=== PATIENT | male | born 1970 | race Caucasian/White ===

== ENCOUNTER 2017-08-17 20:51 | Observation (INO) | payer BC, OTHER ==
[~2017-08-17] VITALS: Ht 172.7 cm; Wt 102.5 kg
[2017-08-17] MEDS ORDERED: ASPIRIN 81 MG CHEW TAB PO ONE (21:15)
[2017-08-17] MEDS ORDERED: NITROGLYCERIN 2% OINT 1 GM PKT TOP ONE (21:15)
[2017-08-17 21:29] LABS: BASOPHILS # (AUTO) 0.1 (0.0-0.1); BASOPHILS % 0.7 % (0.0-1.0); EOSINOPHILS # (AUTO) 0.2 (0.0-0.4); HEMATOCRIT 46.6 % (38.2-49.6); HEMOGLOBIN 15.5 g/dL (14.0-18.0); LYMPHOCYTES # (AUTO) 2.5 (1.0-3.2); LYMPHOCYTES % 28.6 % (18.0-39.1); MEAN CORPUSCULAR HGB CONC 33.3 g/dL (31-35); MEAN CORPUSCULAR VOLUME 90.1 fL (81-99); MONOCYTES # (AUTO) 0.8 (0.2-0.8); MONOCYTES % 8.6 % (4.4-11.3); NEUTROPHILS # (AUTO) 5.3 (2.1-6.9); NEUTROPHILS % 59.9 % (38.7-80.0); PLATELET COUNT 162 x10e3/uL (140-360); RED BLOOD COUNT 5.17 x10e6/uL (4.3-5.7); RED CELL DISTRIBUTION WIDTH 13.5 % (11.7-14.4)
[2017-08-17 21:39] LABS: INR 0.91; PARTIAL THROMBOPLASTIN TIME 32.6 seconds (23.8-35.5); PROTHROMBIN TIME 12.7 seconds (11.9-14.5)
[2017-08-17 21:49] LABS: ALANINE AMINOTRANSFERASE 33 IU/L (0-55); ALBUMIN 3.8 g/dL (3.5-5.0); ALKALINE PHOSPHATASE 96 IU/L (40-150); ANION GAP 10.9 mmol/L (8-16); BLOOD UREA NITROGEN 17 mg/dL (7-26); BUN/CREATININE RATIO 16 (6-25); CALCIUM 9.2 mg/dL (8.4-10.2); CARBON DIOXIDE 27 mmol/L (22-29); CHLORIDE 107 mmol/L (98-107); CREATINE KINASE 95 IU/L (30-200); CREATININE, SERUM 1.06 mg/dL (0.72-1.25); EST GLOMERULAR FILTRATION RATE > 60 ML/MIN (60-); GLUCOSE 109 mg/dL (74-118); POTASSIUM 3.9 mmol/L (3.5-5.1); SODIUM 141 mmol/L (136-145)
[2017-08-17 21:55] LABS: TROPONIN I 0.005 ng/mL (0-0.300)
--- NOTE | 2017-08-17 21:56 | Diagnostic Imaging Report ---
CHEST SINGLE (NOT PORTABLE), 08/17/2017 9:08 PM Technique: CHEST SINGLE (NOT PORTABLE) Comparison: None available. Clinical history: Chest pain Findings: Unremarkable appearance of the heart, mediastinum, lungs and pleural spaces. Remote right rib fractures. Impression: 1. Lines/Tubes: None 2. No acute abnormality. Signed by: Dr Doris Tavarez MD on 08/17/2017 9:52 PM
[2017-08-17] MEDS ORDERED: MORPHINE SULFATE 2 MG/ML SYR IV PRN (22:30)
[2017-08-17] MEDS ORDERED: SODIUM CHLORIDE FLUSH 10 ML SYR INJ PRN (22:30)
[2017-08-17] MEDS ORDERED: ONDANSETRON HCL INJ 2 MG/ML VIAL IV PRN (22:30)
[2017-08-17] MEDS: FAMOTIDINE 20 MG/2 ML VIAL IV SCH (22:51)
[2017-08-18] VITALS (7 sets, daily range): BP systolic 100–156; BP diastolic 60–84
[2017-08-18] MEDS: NITROGLYCERIN 2% OINT 1 GM PKT TOP SCH ×4 (05:10→18:00)
[2017-08-18 07:05] LABS: BASOPHILS # (AUTO) 0.1 (0.0-0.1); BASOPHILS % 0.8 % (0.0-1.0); EOSINOPHILS # (AUTO) 0.2 (0.0-0.4); EOSINOPHILS % 2.3 % (0.0-6.0); HEMATOCRIT 43.5 % (38.2-49.6); HEMOGLOBIN 14.4 g/dL (14.0-18.0); LYMPHOCYTES # (AUTO) 2.3 (1.0-3.2); LYMPHOCYTES % 30.4 % (18.0-39.1); MEAN CORPUSCULAR HEMOGLOBIN 29.9 pg (28-32); MEAN CORPUSCULAR HGB CONC 33.1 g/dL (31-35); MEAN CORPUSCULAR VOLUME 90.4 fL (81-99); MONOCYTES # (AUTO) 0.7 (0.2-0.8); MONOCYTES % 9.2 % (4.4-11.3); NEUTROPHILS # (AUTO) 4.3 (2.1-6.9); NEUTROPHILS % 56.8 % (38.7-80.0); PLATELET COUNT 156 x10e3/uL (140-360); RED BLOOD COUNT 4.81 x10e6/uL (4.3-5.7); RED CELL DISTRIBUTION WIDTH 13.4 % (11.7-14.4)
[2017-08-18 07:27] LABS: ALANINE AMINOTRANSFERASE 31 IU/L (0-55); ALBUMIN 3.3 g/dL (3.5-5.0); ALKALINE PHOSPHATASE 68 IU/L (40-150); ANION GAP 11.2 mmol/L (8-16); BLOOD UREA NITROGEN 15 mg/dL (7-26); BUN/CREATININE RATIO 16 (6-25); CALCIUM 8.8 mg/dL (8.4-10.2); CARBON DIOXIDE 28 mmol/L (22-29); CHLORIDE 108 mmol/L (98-107); CHOL/HDL RATIO 3.5 (3.9-4.7); CHOLESTEROL 164 MD/DL (0-199); CREATINE KINASE 64 IU/L (30-200); CREATININE, SERUM 0.94 mg/dL (0.72-1.25); EST GLOMERULAR FILTRATION RATE > 60 ML/MIN (60-); GLUCOSE 96 mg/dL (74-118); HDL CHOLESTEROL 47 MG/DL (40-60); LDL CHOLESTEROL 105 MG/DL (60-130); POTASSIUM 4.2 mmol/L (3.5-5.1); SODIUM 143 mmol/L (136-145); TRIGLYCERIDES 59 MG/DL (0-149)
[2017-08-18] MEDS: ASPIRIN 81 MG ENTERIC COATED PO SCH (08:16)
[2017-08-18 08:41] LABS: TROPONIN I 0.006 ng/mL (0-0.300)
[2017-08-18] MEDS ORDERED: REGADENOSON 0.4 MG/5 ML SYR IV ONE (09:04)
--- NOTE | 2017-08-18 09:24 | Consultation ---
DATE OF CONSULTATION: August 17, 2017 CARDIOLOGY CONSULTATION REASON FOR CONSULTATION: Chest pain. CONSULTING PHYSICIAN: Dr. Finn HPI: This is a pleasant 47-year-old male that presented with chest pain. According to him, yesterday he started having central chest pain that felt like a tightness and pressure on a scale of 5 out of 10 that radiated to his neck and left shoulder that he decided to come into the emergency room for evaluation. He also stated having a history of cardiac catheterization times 2, one at [facility] and 1 at [place]. Multiple nuclear stress tests. He does not follow up with any primary doctor. He is only taking aspirin daily. He also has a strong family history of cardiac problems. He denies any palpitation, any dizziness, any shortness of breath, any diaphoresis, or headache. Troponin times 1 is negative. EKG showed normal sinus rhythm with some inverted T-waves. Chest x-ray showed some remote rib fractures. PAST MEDICAL HISTORY: AR times 2 with no intervention and possible high blood pressure, but not on any medications. SURGICAL HISTORY: Right knee surgery times 2, bilateral hernia repair, cyst removal from the neck due to cancer. FAMILY HISTORY: Positive for CAD. The father has an ICD and a pacemaker. SOCIAL HISTORY: No smoking. He drinks occasionally and lives at home by himself. The recently . MEDICATIONS: He is not on any home medications that was prescribed. He takes [id number] 325 mg aspirin. ALLERGIES: HE IS NOT ALLERGIC TO ANY MEDICATIONS. REVIEW OF SYSTEMS: Negative except as mentioned above. It is positive for chest pain. PHYSICAL EXAMINATION VITAL SIGNS: Temperature 97, heart rate 55, blood pressure 123/69, respirations 20, and oxygen saturation 99%. GENERAL: He is alert, awake, well-built, and oriented times 3. HEENT: Mucous membrane moist. NECK: Supple. LUNGS: Bilateral clear to auscultation. CARDIOVASCULAR: S1 and S2 present. ABDOMEN: Soft. NEUROLOGICAL: Intact. EXTREMITIES: With no edema. LABS: Sodium 143, potassium 4.2, chloride 108, CO2 28, BUN 15, creatinine 0.94, glucose 96. White blood cells 7.54, hemoglobin 14.4, hematocrit 43.5, and platelets 156,000. PT 12.7, PTT 32.6, INR 0.92. IMPRESSION 1. Chest pain - Unstable angina 2. History of myocardial infarction with cardiac catheterization times 2 with no intervention. ASSESSMENT AND PLAN: Will get an echo to assess the LV and the valve function. Will continue nitrate and aspirin. Due to his cardiac history of AR times 2, will go ahead and schedule him for a Lexiscan Myoview to rule out any occlusion. Will get serial cardiac enzymes. Check magnesium. Further cardiac workup pending clinical course. Thank you for this consultation. DICTATED BY GALLO AVALOS NP Job#: [id number] [facility] [place]
[2017-08-18] MEDS: FAMOTIDINE 20 MG/2 ML VIAL IV SCH ×2 (10:41→22:23)
[2017-08-18 16:00] LABS: CREATINE KINASE MB 0.8 ng/mL (0.00-5.00); TROPONIN I 0.011 ng/mL (0-0.300)
--- NOTE | 2017-08-18 18:16 | History and Physical ---
PRIMARY CARE PROVIDER: Dr. Mo Giordano. CHIEF COMPLAINT: Chest pain. HISTORY OF PRESENT ILLNESS: Mr. Kelley is a 47-year-old gentleman who comes in with intermittent chest pain over the last 6 days associated with diaphoresis, shortness of breath, clammy feeling radiating down both arms that went away with rest, occurred with some activity. It happened approximately 4 times in the last 6 days. The patient has had a heart cath twice in the past. He had one done in 2010 here where they said he had some kind of a blockage, but when they squirted the dye the blockage went away, so he has had no intervention. He may of had a transient thrombus in one of his coronaries in 2010. He also had another heart cath 2 years ago at [place] and again no intervention. REVIEW OF SYSTEMS: He denies fever, chills or weight loss. Denies sinus congestion or sore throat. He complains of chest pain that is exertional with diaphoresis and shortness of breath. He denies cough or wheezing. Denies abdominal pain, nausea or vomiting. He denies dysuria or flank pain. Denies rash or pruritus. Denies bleeding or bruising. Denies headache, vertigo or loss of consciousness. He denies depression, agitation, homicidal or suicidal ideation. PAST MEDICAL HISTORY: Negative. MEDICATIONS: The patient is on no medications. PAST SURGICAL HISTORY: He has had a heart cath x2 in the past for chest pain with no intervention. He does have a history of knee surgery. SOCIAL HISTORY: He is not a smoker. The patient is a . His 2 years ago from lung cancer. He does not drink or use illegal drugs. He is generally independently functioning. ALLERGIES: NO KNOWN DRUG ALLERGIES. FAMILY HISTORY: Significant for heart disease in his father that started at age 50. He has a brother that is healthy. PHYSICAL EXAM: PSYCHIATRIC: He is alert and oriented times 3 with normal mood and affect. CONSTITUTIONAL: He has a normal body habitus. Is in no acute distress. VITAL SIGNS: Blood pressure 100/60. Pulse 55 and regular. Respiratory rate 18. O2 sat 97%. Temperature 97.2. HEENT: Head is atraumatic. His eyes are anicteric with clear conjunctivae. Ears and nares are without erythema or discharge. Oropharynx is clear. NECK: Is supple. No mass or thyromegaly. LYMPHATIC SYSTEM: No palpable cervical, axillary or inguinal adenopathy. CARDIOVASCULAR: His heart has a regular rate and rhythm without murmur or extra heart sounds. No carotid bruits. Has no peripheral edema. Has palpable dorsal pedal pulses. RESPIRATORY: Clear to auscultation and percussion with normal respiratory effort. GASTROINTESTINAL: Abdomen is soft without organomegaly, masses or tenderness. Normal bowel sounds present. CUTANEOUS: His skin is warm and dry to touch with no rash or skin breakdown. MUSCULOSKELETAL: Joints are in normal alignment without erythema or swelling. He has no calf tenderness. NEUROLOGIC: Exam is nonfocal with intact cranial nerves and no motor or sensory deficits. DIAGNOSTIC STUDIES: Chest x-ray shows no acute disease. EKG is essentially normal. Cholesterol 164. HDL 47. LDL 105. Troponin 0.005, 0.006 and 0.011. BNP is 24.0. Magnesium 2.2. His electrolytes are normal. CO2 is 28. Creatinine 0.94. BUN 15 for a normal GFR. Glucose is 96. Calcium is 8.8. Transaminases, bilirubin and alkaline phos are all normal. CBC shows a white count of 7.54 with a normal differential. Hemoglobin 14.4, hematocrit 43.5 and platelet count 156,000. IMPRESSION AND PLAN 1. Chest pain. Serial cardiac enzymes have ruled out myocardial injury. The symptoms were consistent with unstable angina. Cardiology has been consulted and is planning on doing a stress test or heart cath tomorrow. The patient has been given aspirin and is an 81 mg daily and morphine as needed for pain. 2. For prophylaxis. He is on Pepcid. Job#: [id number]
[2017-08-19] VITALS (9 sets, daily range): BP systolic 115–128; BP diastolic 61–77
[2017-08-19] MEDS: NITROGLYCERIN 2% OINT 1 GM PKT TOP SCH ×2 (00:36→06:00)
[2017-08-19] MEDS ORDERED: HEPARIN SOD (PORCINE) 1000 UNIT/ML 30ML ONE (06:33)
[2017-08-19] MEDS ORDERED: LIDOCAINE HCL 2% LOCAL 20 ML VIAL ONE (06:34)
[2017-08-19] MEDS ORDERED: HEPARIN SOD/SOD CHLORIDE 2,000 ML ONE (06:34)
[2017-08-19] MEDS ORDERED: IOPAMIDOL 300MG/ML 50ML INFUS..BTL IV ONE (06:34)
[2017-08-19] MEDS ORDERED: NITROGLYCERIN/D5W 200 MCG/ML 250 ML ONE (06:34)
[2017-08-19] MEDS ORDERED: MIDAZOLAM HCL 2 MG/2 ML VIAL ONE (06:34)
[2017-08-19] MEDS ORDERED: IOPAMIDOL 370 MG/ML 200 ML INFUS..BTL INJ ONE (06:34)
[2017-08-19] MEDS ORDERED: SODIUM CHLORIDE 0.9% 1000ML 1,000 ML ONE (06:34)
[2017-08-19 06:46] LABS: BASOPHILS # (AUTO) 0.1 (0.0-0.1); BASOPHILS % 0.8 % (0.0-1.0); EOSINOPHILS # (AUTO) 0.2 (0.0-0.4); EOSINOPHILS % 3.5 % (0.0-6.0); HEMATOCRIT 44.8 % (38.2-49.6); HEMOGLOBIN 14.7 g/dL (14.0-18.0); LYMPHOCYTES # (AUTO) 1.9 (1.0-3.2); LYMPHOCYTES % 29.4 % (18.0-39.1); MEAN CORPUSCULAR HEMOGLOBIN 29.9 pg (28-32); MEAN CORPUSCULAR HGB CONC 32.8 g/dL (31-35); MEAN CORPUSCULAR VOLUME 91.1 fL (81-99); MONOCYTES # (AUTO) 0.7 (0.2-0.8); MONOCYTES % 10.8 % (4.4-11.3); NEUTROPHILS # (AUTO) 3.6 (2.1-6.9); PLATELET COUNT 153 x10e3/uL (140-360); RED BLOOD COUNT 4.92 x10e6/uL (4.3-5.7); RED CELL DISTRIBUTION WIDTH 13.5 % (11.7-14.4)
[2017-08-19 07:06] LABS: INR 0.98; PROTHROMBIN TIME 13.5 seconds (11.9-14.5)
[2017-08-19 07:07] LABS: PARTIAL THROMBOPLASTIN TIME 32.3 seconds (23.8-35.5)
[2017-08-19 07:15] LABS: ANION GAP 10.4 mmol/L (8-16); BLOOD UREA NITROGEN 11 mg/dL (7-26); BUN/CREATININE RATIO 12 (6-25); CARBON DIOXIDE 29 mmol/L (22-29); CHLORIDE 107 mmol/L (98-107); CREATININE, SERUM 0.95 mg/dL (0.72-1.25); EST GLOMERULAR FILTRATION RATE > 60 ML/MIN (60-); GLUCOSE 96 mg/dL (74-118); POTASSIUM 4.4 mmol/L (3.5-5.1); SODIUM 142 mmol/L (136-145)
[2017-08-19] MEDS ORDERED: FENTANYL CITRATE/PF 100MCG/2 ML INJ ONE (07:40)
--- NOTE | 2017-08-19 08:25 | Operative Report ---
DATE OF PROCEDURE: PROCEDURE: Cardiac catheterization. INDICATIONS: Unstable angina. DESCRIPTION OF PROCEDURE: After informed consent, the patient was brought to the cardiac catheterization laboratory and placed on the table. Both groins were painted and draped in a sterile fashion. Lidocaine injected in the right groin for local anesthesia. Right femoral artery was accessed by Seldinger technique, and a 5-Ukrainian sheath was placed in the right femoral artery. Left main artery was cannulated using a JL4 5-Ukrainian catheter. Coronary angiogram was performed. Images obtained in multiple views. Right coronary artery was cannulated using a 3DRC 5-Ukrainian catheter. Coronary angiogram was performed. Images obtained in multiple views. LV-gram was performed using a pigtail catheter. Patient tolerated the procedure without any complications. REPORT LEFT MAIN: Normal caliber and is free of disease. LEFT ANTERIOR DESCENDING: Normal caliber. There is luminal irregularities. LEFT CIRCUMFLEX: Normal caliber and appears to be free of disease. RIGHT CORONARY ARTERY: Large caliber dominant vessel and is free of disease. LV-GRAM: Normal LV function. Overall ejection fraction is 55% to 60%. HEMODYNAMICS: Aortic pressure is 140/66. LV pressure 138/8. LVEDP is 20. PLAN: Medical management. Job#: [id number] LUIS
--- NOTE | 2017-08-19 08:59 | Cardiology Report ---
DATE OF STUDY: August 18, 2017 LEXISCAN NUCLEAR STRESS TEST INDICATIONS: Chest pain. DESCRIPTION OF PROCEDURE: After informed consent, the patient was brought to the stress lab. Patient was given 10.7 mCi of technetium-99 Myoview, and myocardial perfusion SPECT images obtained in the horizontal long and short axis, vertical and long axis views. Subsequently, patient was 0.4 mg of Lexiscan over 10 seconds. Patient was given 32.9 mCi of technetium-99 Myoview, and myocardial perfusion SPECT images obtained in the horizontal long and short axis, vertical and long axis. Gating images were also obtained. Patient tolerated the procedure without any complications. REPORT: Baseline EKG shows sinus rhythm at 68 beats per minute. Normal axis. Normal intervals. Nonspecific ST-T changes. PARAMETERS 1. Resting heart rate is 72 beats per minute. 2. Maximum heart rate 105 beats per minute. 3. Resting blood pressure 111/87 mmHg. 4. Maximum blood pressure 130/70 mmHg. REASON FOR TERMINATION: End-point attained. INTERPRETATION 1. Negative chest pain. 2. Negative for arrhythmias. 3. Blood response consistent with Lexiscan. 4. No significant ST-T changes seen during Lexiscan infusion compared to baseline. Analysis of SPECT images reveals a small area of decreased radioisotope uptake in the anterior wall during rest during stress, which reverses during rest. CONCLUSIONS 1. This study demonstrated a small area of mild anterior wall ischemia. Mild hypokinesis of the anterior wall is noted. 2. Overall ejection fraction is 39%. Job#: [id number] RI
[2017-08-19] MEDS: FAMOTIDINE 20 MG/2 ML VIAL IV SCH (09:38)
[2017-08-19] MEDS: ASPIRIN 81 MG ENTERIC COATED PO SCH (09:38)
[2017-08-19] MEDS ORDERED: ASPIRIN EC81 MG PO (10:15)
[2017-08-19] MEDS ORDERED: FAMOTIDINE20 MG PO (10:15)
--- NOTE | 2017-08-20 06:17 | Discharge Summary ---
ADMITTING DIAGNOSIS: Chest pain. DISCHARGE DIAGNOSES 1. Chest pain. 2. Rule out myocardial infarction. HISTORY: Patient has a history of cardiac cath times 2 for chest pain with no intervention, and history of knee surgery. Upon admission, chest x-ray was done, which showed no acute abnormality. Troponins were done, which showed a troponin of 0.005, 0.006 and 0.011 with a BNP of 24. Cardiology was consulted, who did a heart cath. Per cardiology, no intervention needed. Patient okay to discharge home. Per Dr. Gill, the patient was discharged home on low-dose aspirin and GERD medication. Patient did not receive metoprolol as his pulse can get into the low 50s. After bed rest, the patient will discharge home. Follow up with cardiology and PCP in 1-2 weeks. DICTATED BY RUBIN BOUDREAUX NP TERESA GILL MD Job#: [id number] AL
== END 2017-08-19 15:40 | disposition home or self-care (01) ==
LOC: ER 20:51 → ERHOLD 22:45 → IMCU 23:18
PROVIDERS: ADMIT Internal Medicine; ATTEND Internal Medicine
DX: R07.9 Chest pain, unspecified (principal); K21.9 Gastro-esophageal reflux disease without esophagitis; I25.2 Old myocardial infarction; Z82.49 Family history of ischemic heart disease and other diseases of the circulatory system
CPT/HCPCS: 36415 ×3; 71010; 78452; 80048; 80053 ×2; 80061; 82550 ×2; 82553 ×2; 83735; 83880; 84484 ×2; 85025 ×3; 85610 ×2; 85730 ×2; 93005; 93017; 93458; 99284; A9502; G0378 ×3; J1644; J2001; J2250; J7030; Q9967 ×2; 36140; 93452

== ENCOUNTER 2021-02-26 15:18 | Observation (INO) | payer OTHER ==
[~2021-02-26] VITALS: Ht 182.9 cm; Wt 108.9 kg
[~2021-02-26 15:18] MED LIST: ASPIRIN EC81 MG PO; FAMOTIDINE20 MG PO
[2021-02-26] MEDS ORDERED: NITROGLYCERIN 0.4 MG SUBL SL PRN (15:30)
[2021-02-26 15:45] LABS: BASOPHILS # (AUTO) 0.1 (0.0-0.1); BASOPHILS % 0.6 % (0.0-1.0); EOSINOPHILS # (AUTO) 0.2 (0.0-0.4); HEMATOCRIT 44.3 % (38.2-49.6); HEMOGLOBIN 14.6 g/dL (14.0-18.0); LYMPHOCYTES # (AUTO) 2.4 (1.0-3.2); MEAN CORPUSCULAR HEMOGLOBIN 29.4 pg (28-32); MEAN CORPUSCULAR VOLUME 89.3 fL (81-99); MONOCYTES # (AUTO) 0.5 (0.2-0.8); NEUTROPHILS # (AUTO) 4.8 (2.1-6.9); NEUTROPHILS % 59.7 % (38.7-80.0); PLATELET COUNT 227 x10e3/uL (140-360); RED BLOOD COUNT 4.96 x10e6/uL (4.3-5.7); RED CELL DISTRIBUTION WIDTH 13.2 % (11.7-14.4)
[2021-02-26 15:53] LABS: INR 0.92; PROTHROMBIN TIME 12.9 seconds (11.9-14.5)
[2021-02-26 15:54] LABS: PARTIAL THROMBOPLASTIN TIME 31.4 seconds (23.8-35.5)
[2021-02-26 16:03] LABS: ALBUMIN 3.9 g/dL (3.5-5.0); ALBUMIN/GLOBULIN RATIO 1.1 (0.8-2.0); ANION GAP 17.7 mmol/L (8-16); CALCIUM 9.2 mg/dL (8.4-10.2); CREATININE, SERUM 1.06 mg/dL (0.72-1.25); POTASSIUM 3.7 mmol/L (3.5-5.1)
[2021-02-26 16:18] LABS: CREATINE KINASE MB 0.8 ng/mL (0-5.0)
[2021-02-27 07:31] LABS: BASOPHILS # (AUTO) 0.1 (0.0-0.1); BASOPHILS % 0.7 % (0.0-1.0); EOSINOPHILS # (AUTO) 0.2 (0.0-0.4); HEMATOCRIT 44.3 % (38.2-49.6); HEMOGLOBIN 14.3 g/dL (14.0-18.0); LYMPHOCYTES # (AUTO) 2.5 (1.0-3.2); LYMPHOCYTES % 30.8 % (18.0-39.1); MEAN CORPUSCULAR HEMOGLOBIN 29.2 pg (28-32); MEAN CORPUSCULAR HGB CONC 32.3 g/dL (31-35); MEAN CORPUSCULAR VOLUME 90.6 fL (81-99); MONOCYTES # (AUTO) 0.7 (0.2-0.8); NEUTROPHILS # (AUTO) 4.6 (2.1-6.9); PLATELET COUNT 194 x10e3/uL (140-360); RED BLOOD COUNT 4.89 x10e6/uL (4.3-5.7); RED CELL DISTRIBUTION WIDTH 13.2 % (11.7-14.4)
[2021-02-27 07:52] LABS: ALANINE AMINOTRANSFERASE 33 IU/L (0-55); ALBUMIN 3.7 g/dL (3.5-5.0); ALBUMIN/GLOBULIN RATIO 1.1 (0.8-2.0); ALKALINE PHOSPHATASE 96 IU/L (40-150); ANION GAP 12.1 mmol/L (8-16); BLOOD UREA NITROGEN 13 mg/dL (7-26); BUN/CREATININE RATIO 15 (6-25); CALCIUM 9.2 mg/dL (8.4-10.2); CARBON DIOXIDE 28 mmol/L (22-29); CHLORIDE 104 mmol/L (98-107); CREATINE KINASE 46 IU/L (30-200); CREATININE, SERUM 0.86 mg/dL (0.72-1.25); EST GLOMERULAR FILTRATION RATE 93 ML/MIN (60-); GLUCOSE 105 mg/dL (74-118); POTASSIUM 4.1 mmol/L (3.5-5.1); SODIUM 140 mmol/L (136-145)
[2021-02-27 08:01] LABS: CREATINE KINASE MB < 1.00 ng/mL (0-4.3)
[2021-02-27 13:19] VITALS: BP 165/87
[2021-02-27 13:25] VITALS: BP 165/87
[2021-02-27 15:13] VITALS: BP 159/85
[2021-02-27] MEDS ORDERED: HYDROCODONE/APAP 5MG-325MG TAB PO PRN (15:45)
[2021-02-27 19:24] VITALS: BP 148/91
[2021-02-27 21:37] VITALS: BP 148/91
[2021-02-27 23:25] VITALS: BP 132/79
[2021-02-28 05:31] VITALS: BP 129/83
[2021-02-28 07:07] LABS: CHOL/HDL RATIO 4.8 (3.9-4.7)
[2021-02-28 07:32] LABS: THYROID STIMULATING HORMONE 5.662 uIU/mL (0.350-4.940)
[2021-02-28 07:57] VITALS: BP 126/89
[2021-02-28 08:57] VITALS: BP 126/89
[2021-02-28] MEDS ORDERED: ASPIRIN 325 MG TAB PO SCH ×2 (09:00)
[2021-02-28] MEDS ORDERED: FAMOTIDINE 20 MG TAB PO ONE (09:00)
[2021-02-28] MEDS ORDERED: METOPROLOL SUCCINATE 25 MG TAB XL PO SCH (09:00)
[2021-02-28] MEDS ORDERED: REGADENOSON 0.4 MG/5 ML SYR IV ONE (10:48)
[2021-02-28] MEDS ORDERED: METOPROLOL SUCC50 MG PO (13:50)
[2021-02-28] MEDS ORDERED: LIPITOR20 MG PO (13:50)
[2021-03-01] MEDS ORDERED: ATORVASTATIN 20 MG TAB PO SCH (09:00)
[2021-03-01] MEDS ORDERED: METOPROLOL SUCCINATE 50 MG TAB XL PO SCH (09:00)
== END 2021-02-28 14:15 | disposition home or self-care (01) ==
LOC: ER 15:23 → ERHOLD 17:37 → MED/SURG 02-27 12:38
PROVIDERS: ADMIT Internal Medicine; ATTEND Internal Medicine
DX: R07.89 Other chest pain (principal); I10 Essential (primary) hypertension; E66.01 Morbid (severe) obesity due to excess calories; Z68.32 Body mass index [BMI] 32.0-32.9, adult; Z20.822 Contact with and (suspected) exposure to COVID-19; E78.00 Pure hypercholesterolemia, unspecified
CPT/HCPCS: 36415 ×3; 71045; 78452; 80053 ×2; 80061; 82550 ×2; 82553 ×2; 83880; 84443; 84484 ×2; 85025 ×2; 85610; 85730; 93005; 93017; 93306; 99284; A9502; G0378 ×3; J2785; U0002